=== PATIENT | male | born 1960 | race Caucasian/White ===

== ENCOUNTER 2024-05-27 06:16 | Day surgery (SDC) | payer MEDICARE, OTHER, SELFPAY | END 2024-05-27 08:39 | disposition home or self-care (01) | LOC: GI 06:16 | PROVIDERS: ATTENDING PHYSICIAN Internal Medicine Gastroenterology | DX: Z12.11 Encounter for screening for malignant neoplasm of colon (principal); Z85.038 Personal history of other malignant neoplasm of large intestine; K64.8 Other hemorrhoids; Z98.0 Intestinal bypass and anastomosis status; K63.3 Ulcer of intestine | CPT/HCPCS: 45331; 88305 ==

== ENCOUNTER → 2024-12-04 12:01 | Outpatient (REF) | payer MEDICARE, OTHER, SELFPAY ==
[2024-12-04 12:36] LABS: % Basophils 0.6 % (0-2); % Eosinophils 2.8 % (0-6); % Immature Granulocytes 0.4 % (0-0.5); % Lymphocytes 10.9 % (20.5-51.1); % Monocytes 8.5 % (1.7-9.3); % Neutrophils 76.8 % (42.2-75.2); Absolute Eosinophils 0.2 10^3/uL (0-0.7); Absolute Lymphocytes 0.8 10^3/uL (1.2-3.4); Absolute Monocytes 0.6 10^3/uL (0.1-0.6); Absolute Neutrophils 5.5 10^3/uL (1.4-6.5); Hemoglobin 14.2 g/dL (13.0-18.0); Mean Corp Hgb Conc. 33.8 g/dL (33.0-37.0); Mean Corpuscular Hgb 29.9 pg (27.0-31.0); Mean Corpuscular Volume 88.4 fL (80.0-94.0); Mean Platelet Volume 9.1 fL (7.4-10.4); Nucleated Red Blood Cells % 0 % (-); Platelet Count 199 10^3/uL (130-400); Red Blood Cell Count 4.75 10^6/uL (4.70-6.10); Red Cell Dist. Width 13.2 % (11.5-14.5); White Blood Cell Count 7.1 10^3/uL (4.8-10.8)
[2024-12-04 12:58] LABS: Blood Urea Nitrogen 16 mg/dl (9-20); Calcium 9.8 mg/dl (8.4-10.2); Carbon Dioxide 26 mmol/L (22-30); Chloride 107 mmol/L (98-107); Glucose 96 mg/dl (70-99); Potassium 4.8 mmol/L (3.5-5.1); Sodium 142 mmol/L (135-145); eGFR > 60.00
== END ==
LOC: REG 12:01
PROVIDERS: ATTENDING PHYSICIAN Specialist; FAMILY PHYSICIAN Family Medicine
DX: Z01.818 Encounter for other preprocedural examination (principal)
CPT/HCPCS: 36415; 80048; 85025

== ENCOUNTER 2025-01-20 13:45 | Emergency (ER) | payer MEDICARE, OTHER, SELFPAY ==
[2025-01-20 13:50] VITALS: BP 149/75
[2025-01-20 14:14] LABS: % Basophils 0.5 % (0-2); % Eosinophils 3.3 % (0-6); % Immature Granulocytes 0.9 % (0-0.5); % Lymphocytes 12.8 % (20.5-51.1); % Neutrophils 77.5 % (42.2-75.2); Absolute Basophils 0.1 10^3/uL (0-0.2); Absolute Eosinophils 0.3 10^3/uL (0-0.7); Absolute Immature Granulocytes 0.1 10^3/uL (0-0.05); Absolute Lymphocytes 1.3 10^3/uL (1.2-3.4); Absolute Monocytes 0.5 10^3/uL (0.1-0.6); Absolute Neutrophils 7.8 10^3/uL (1.4-6.5); Hematocrit 34.3 % (39.0-52.0); Hemoglobin 11.7 g/dL (13.0-18.0); Mean Corp Hgb Conc. 34.1 g/dL (33.0-37.0); Mean Corpuscular Volume 87.9 fL (80.0-94.0); Mean Platelet Volume 8.6 fL (7.4-10.4); Nucleated Red Blood Cells % 0 % (-); Platelet Count 280 10^3/uL (130-400); Red Cell Dist. Width 13.9 % (11.5-14.5); White Blood Cell Count 10.1 10^3/uL (4.8-10.8)
[2025-01-20 14:19] VITALS: BMI 33.5
[2025-01-20 14:25] LABS: Urine Albumin 1+ (Neg - Trace); Urine Bilirubin Negative (Negative); Urine Character Clear (Clear); Urine Color Yellow; Urine Glucose Negative (Negative); Urine Ketone Negative (Negative); Urine Leukocyte Negative (Negative); Urine Nitrite Negative (Negative); Urine Occult Blood 1+ (Negative); Urine Urobilinogen Negative (Neg - 1+)
--- NOTE | 2025-01-20 14:41 | ED.GENMED ---
History of Present Illness
General
Chief Complaint: Flank Pain
Source: patient
Exam Limitations: none
Time Seen by Provider: 01/20/25 14:32
History of Present Illness
History of Present Illness:
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 He reports right flank pain which initially started yesterday. He had leftover oxycodone from a knee replacement 2 weeks
ago. He took the oxycodone and his pain went away. His pain recurred this afternoon and he again took an oxycodone. Pain feels similar to his prior kidney stones. Pain is associated with diaphoresis. He had some dry heaving earlier today but
has not vomited. He denies any abdominal pain, chest pain, shortness of breath, dysuria, fevers.
Past History
Past History
ED Past Medical History: Cancer (Colon cancer), GERD, Other (Mcmahon syndrome) and Other (Lower GI bleed February 2013 related to an anastomotic ulcers.)
ED Past Surgical History: Bowel resection (Total colectomy 2010) and Orthopedic (Knee arthroscopy)
Social History
Tobacco: Non-smoker
Alcohol: None
Drug: None
Personal:
Living: with family
Family History
Family History: Other (Family history of Mcmahon syndrome. He has a son with acute leukemia)
Phy Exam
General Physical Exam
General Presentation: well appearing and no apparent distress
General Skin: warm and dry
General Habitus: normal
General Mental: alert
ENT Exam
ENT Exam: normocephalic
Cardiovascular Exam
Cardiovascular Exam: regular rate/rhythm
Pulmonary Exam
Pulmonary Exam: lungs clear, no respiratory distress, no rales, no crackles, no rhonchi and no wheezing
Gastrointestinal Exam
Gastrointestinal Exam: non tender, soft, non distended and no cva tenderness
Neurological Exam
Neurological Exam: alert
Trent Coma Scale
Eye Opening: Spontaneous
Verbal Response: Oriented
Motor Response: Obeys Commands
GCS Total Score: 15
Skin Exam
Skin Exam: normal color and warm/dry
Psychiatric Exam
Psychiatric Exam: normal mood/affect
Course
Orders/Labs/Results
Orders:
Orders
01/20/25 13:53
CT Abd/pel Without Iv Or Oral Urgent
Comment:
Reason For Exam: kidney stone
01/20/25 14:01
Complete Blood Count/With Diff Urgent
Comprehensive Metabolic Panel Urgent
Urinalysis Reflex To Culture Urgent
Date Specimen was Collected: 01/20/25
Time Specimen was Collected: 13:53
Urine Microscopic Reflex Cult Urgent
01/20/25 14:41
0.9% Sodium Chloride 1000 ml [Nss] 1,000 ml IV BOLUS
Abnormal Lab Results
01/20/25
14:01
RBC 3.90 L 10^6/uL
(4.70-6.10)
Hgb 11.7 L g/dL
(13.0-18.0)
Hct 34.3 L %
(39.0-52.0)
Abs Immat Gran (auto) 0.1 H 10^3/uL
(0-0.05)
Absolute Neuts (auto) 7.8 H 10^3/uL
(1.4-6.5)
Immature Gran % 0.9 H %
(0-0.5)
Neutrophils % 77.5 H %
(42.2-75.2)
Lymphocytes % 12.8 L %
(20.5-51.1)
Chloride 110 H mmol/L
(98-107)
Glucose 184 H mg/dl
(70-99)
Ur Occult Blood Reflex 1+ A
(Negative)
Urine Albumin (Reflex) 1+ A
(Neg - Trace)
01/20/25 14:01
01/20/25 14:01
Vital Signs
Initial and Last Documented VS:
Initial Vital Signs
Temp Pulse Resp BP Pulse Ox
98.3 F 75 20 149/75 99
01/20/25 13:50 01/20/25 13:50 01/20/25 13:50 01/20/25 13:50 01/20/25 13:50
Last Documented Vital Signs
Temp Pulse Resp BP Pulse Ox
98.3 F 75 20 149/75 99
01/20/25 13:50 01/20/25 13:50 01/20/25 13:50 01/20/25 13:50 01/20/25 13:50
MDM/Problems Addressed
Differential Diagnosis Includes:
64yoM here with R flank pain x 1 day. Hx of kidney stones and this feels the same. Pain relieved with oxycodone. No f/c or urinary symptoms. He is hypertensive with otherwise stable vitals. He is well appearing in no distress. No abdominal or CVA
tenderness on exam. Differential diagnosis includes but is not limited to: kidney stone, UTI, pyelonephritis, musculoskeletal, doubt but consider AAA, doubt PE as he denies dyspnea/pleuritic pain and oxygen saturation is 99%
Initial ED plan: Check CBC, CMP, UA, and CT abdomen without contrast. IV fluid bolus. He declines analgesics.
*Pulse Oximetry
Patient hypoxic: no (99%)
*Critical Care Note
Total Time (30-74mins, 75-104mins- exclusive of procedures): Not Applicable
Update Note
Update Note:
CT shows a 2 mm stone in the bladder. 1+ blood seen on urine and calcium oxalate crystal seen. No signs of infection on urinalysis. Renal function WNL. A 4mm lung nodule was seen incidentally which patient and were notified of. Copy of
radiology report provided. Patient small a small spec in the toilet after the CT scan and believes he already passed the stone. Supportive care discussed. Advised f/u with PCP and urology. ED return precautions reviewed. Patient discharged in
stable condition.
ED Attending Note
-
Portions of this chart may have been created with voice recognition software.� Occasional wrong word or��sound alike� substitutions may have occurred due to the inherent limitations of voice recognition software.
Discharge Plan
Departure
Patient Disposition: Home (Routine Discharge)
Date of Disposition: 01/20/25
Time of Disposition: 16:18
Patient with high blood pressure during this ER visit?: Yes
Discharge Problem:
Right flank pain, Bladder calculus, Lung nodule
Instructions: Flank Pain (DC)
Prescriptions:
No Action
cholecalciferol (vitamin D3) [Vitamin D3] 1,000 UNIT capsule
25 mcg PO DAILY
Glucosamine Chondroitin 550-30-1 mg Capsule
1,500 cap PO DAILY
Vitamin C
1,000 mg PO DAILY
magnesium
400 mg PO DAILY
zinc 50 mg Tablet
50 mg PO DAILY
Referrals:
Grant Monroy MD [Active, Urology]
Barbara Cole DO [Family Provider, Family Practice]
Activity Restrictions/Additional Instructions:
Please follow-up with your family doctor and urology. Return to the ER with any worsening symptoms including severe pain or fevers.
A small lung nodule was seen on today's CT scan. Please discuss this with your family doctor. Radiology guidelines recommend optional repeat CT scan in 12 months for high risk patients.
Interventions
Interventions:
*Risk Screen - Suicide Last Done: 01/20/25 14:19
*General Assessment Last Done: 01/20/25 13:50
*Neglect/Abuse Screening Last Done: 01/20/25 14:19
*ED- Fall Risk Assessment Last Done: 01/20/25 14:19
*ED COVID-19 Vaccine History Last Done: 01/20/25 14:19
[facility]-Fvudtc-Ijmguyoswd Assessment Last Done: 01/20/25 14:56
ED-Male Genitourinary Assessment Last Done: 01/20/25 14:56
Discharge Date and Time
Print Language: MALTESE
[2025-01-20 14:44] LABS: ALT (SGPT) 30 U/L (0-50); AST (SGOT) 27 U/L (17-59); Alkaline Phosphatase 97 U/L (38-126); Blood Urea Nitrogen 18 mg/dl (9-20); Calcium 8.9 mg/dl (8.4-10.2); Carbon Dioxide 22 mmol/L (22-30); Chloride 110 mmol/L (98-107); Estimated Creatinine Clearance 98 ml/min; Glucose 184 mg/dl (70-99); Potassium 3.9 mmol/L (3.5-5.1); Sodium 140 mmol/L (135-145); Total Bilirubin 0.9 mg/dl (0.2-1.3); Total Protein 6.6 g/dl (6.3-8.2); eGFR > 60.00
[2025-01-20] MEDS: NSS 1000 IV (14:49)
[2025-01-20 15:28] LABS: Urine Mucus Many
[2025-01-20 15:29] LABS: Urine Amorphous Seen; Urine Squamous Cell 0-2 /LPF (Few)
[2025-01-20 15:30] LABS: Urine Calcium Oxalate Crystals Seen; Urine Red Blood Cell 0-2 /HPF (0-2); Urine White Cell 0-2 /HPF (0-5)
[2025-01-20 16:31] VITALS: BP 134/83
== END 2025-01-20 16:34 | disposition home or self-care (01) ==
LOC: EMR 13:45
PROVIDERS: Emergency Medicine; EMERGENCY PHYSICIAN Emergency Medicine; FAMILY PHYSICIAN Family Medicine
DX: N21.0 Calculus in bladder (principal); R91.1 Solitary pulmonary nodule; Z85.038 Personal history of other malignant neoplasm of large intestine; Z90.49 Acquired absence of other specified parts of digestive tract; Z87.442 Personal history of urinary calculi
CPT/HCPCS: 96360; 99284; 74176; 80053; 81003; 81015; 85025

== ENCOUNTER → 2025-04-14 09:12 | Outpatient (REF) | payer MEDICARE, OTHER, SELFPAY | LOC: RAD 09:12 | PROVIDERS: ATTENDING PHYSICIAN Family Medicine | DX: Z15.09 Genetic susceptibility to other malignant neoplasm (principal); R91.1 Solitary pulmonary nodule | CPT/HCPCS: 71260; Q9967 ==

== ENCOUNTER 2025-06-16 06:13 | Day surgery (SDC) | payer MEDICARE, OTHER, SELFPAY | END 2025-06-16 11:14 | disposition home or self-care (01) | LOC: GI 06:13 | PROVIDERS: ATTENDING PHYSICIAN Internal Medicine Gastroenterology | DX: K63.89 Other specified diseases of intestine (principal); K63.3 Ulcer of intestine; K64.8 Other hemorrhoids; K29.70 Gastritis, unspecified, without bleeding; K22.89 Other specified disease of esophagus; K20.90 Esophagitis, unspecified without bleeding; K44.9 Diaphragmatic hernia without obstruction or gangrene; Z15.060 Genetic susceptibility to colorectal cancer; Z98.0 Intestinal bypass and anastomosis status; Z85.038 Personal history of other malignant neoplasm of large intestine | CPT/HCPCS: 45331; 43239; 88305 ==